=== PATIENT | female | born 1965 | race Caucasian/White ===

== ENCOUNTER 2019-03-29 13:07 | Day surgery (SDC) | payer OTHER, SELFPAY ==
--- NOTE | 2019-03-28 13:32 | HP.PCM_ITS ---
History and Physical Date of Admission: 03/29/19 Surgical History and Physical July Gypsy, a 53 year old female 2 0 1 0 2, presents for Bartholins Gland Marsupialization on March 29, 2019 at 3:00. 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 LMP 08/2014. States she was told she had this ~ 20 yrs ago, but nothing was done. She was not bothered by this until ~ 5 yrs ago when it had to be lanced, drained, packed and was given an ABX. Reports that she drains the cyst about once weekly and wears a pad daily due to drainage. Adds when it fills up she gets a backache and always feels awful. Called late last week and claims it is about 1-2 inches in diameter at present. MEDICATIONS HISTORY: Current medications prescribed by our practice are: 1. Metrogel Vaginal 0.75 %, One applicatorful 2 x daily for 5 days Patient is also takin. gabapentin 100 mg capsule, One pill by mouth twice a day 2. rosuvastatin 20 mg tablet, One tablet by mouth daily 3. Vitamin D2 50,000 unit capsule, One pill by mouth once a week ALLERGIES: No Known Allergies Infections - Chicken Pox Illnesses - Depression Accidents - None Hospitalizations - Childbirth and see surgery Review of Systems: GENERAL - Denies fever, or chills SKIN - Denies skin changes EYES - Denies visual changes EARS - Denies difficulty hearing NOSE - Denies nasal congestion or bleeding MOUTH - Denies sore throat or difficulty swallowing NECK - Denies pain or swelling RESPIRATORY - Denies shortness of breath or wheezing CARDIOVASCULAR - Denies palpitations or chest pain GASTROINTESTINAL - Denies nausea, vomiting, diarrhea, constipation GENITOURINARY - Denies dysuria, frequency of urination, incontinence of urine MUSCULOSKELETAL - Denies joint or muscle pain NEUROLOGICAL - Denies localized numbness or weakness PSYCHIATRIC - Denies depression or anxiety ENDOCRINE - Denies heat or cold intolerance, weight loss or gain HEMATO-IMMUNOLOGIC - Denies excesive bleeding with cuts SOCIAL HISTORY: Alcohol Use - None Smoking - 1 PPD (ATQ) Diet - no special diet Lifestyle - moderate stress lifestyle and Exercise - active Seat Belt Use - always Employer - Home Illicit Drug Use - None Sexual Activity - Residence - Lives w/ Spouse-Sig Other Name - August Betancur Spouse-Sig Other Occupation - [employer] Spouse-Sig Other Phone No - [phone] Children Name(s) - 2 living Control - Post Menopausal FAMILY HISTORY: non-contributory MENSTRUAL HISTORY: LMP Known?- Post Menopausal, Age Onset Menarche - 12 PAST PREGNANCIES: Total Pregnancies - 3; Full Term Pregnancies - 2; Premature - 0; Abortions, Induced - 1; Abortions, Spontaneous - 0; Ectopics - 0; Multiple Births - 0; Living Children - 2 SURGICAL HISTORY: 1. Tubal 1990 PHYSICAL EXAM BP- 116/66 Sitting, Right arm, regular cuff Weight- 153 lbs Height- 62.25 inch BMI:27.82 CONSTITUTIONAL - NAD, well nourished, and well developed SKIN - No rash, lesions, or ulcers HEENT - Normocephalic, PERRLA, EOMI NECK - No nodes, no nuchal rigidity and thyroid normal size and texture LYMPH NODES - Palpation of lymph nodes in neck and groins within normal limits LUNGS - CTA x2 without wheezes, crackles or rales CARDIAC - Regular rate and rhythm without rubs, murmurs, or gallops BREAST - No dominant masses, no tenderness, no axillary adenopathy, no nipple discharge, no skin changes ABDOMEN - Without hepatosplenomegaly, distention, masses, rebound, or guarding; normal bowel sounds; no hernias EXTREMITIES - No edema or calf tenderness NEUROLOGICAL - Cranial nerves II-XII grossly intact PSYCHIATRIC - A and O to time, place, person, mood and affect External Genitial Vagina - non-tender without lesions; on phone claims bartholins cyst on right about 1-2 icinches in diameter Urethra/Urethral Meatus - non-tender Bladder - non-tender Vagina - vaginal medeiros are pink and moist without loss of rugae and no evidence of atropy Cervix - without cervical motion tenderness and has normal size and features wi thout evident lesions Uterus - 5-6 cm in size, mobile and nontender Adnexa - clear without massess or tendernes ASSESSMENT/PLAN: Recurrent Bartholinitis. Discussed marsupialization since >1 inch diameter. Discussed RBAs including possibility of not being able to perform procedure if it is too small and not helping with recurrence. All questions answered.
[2019-03-29 13:35] VITALS: BP 117/69; PULSE 74; RESP 14; TEMP 37.1; O2SAT 99; BMI 27.8
[2019-03-29 13:41] LABS: Hemoglobin 14.1 g/dL (12.0-15.0); Mean Corp Hgb Conc 35.3 g/dL (32-36); Mean Corpuscular Hgb 32.6 pg (27.0-32.0); Mean Corpuscular Volume 92.6 fL (81-99); Mean Platelet Vol. 9.4 fl (6.2-12.0); Platelet Count 216 K/mm3 (150-450); RBC Distribution Width CV 11.7 % (11.6-14.6); RBC Distribution Width SD 39.4 fl (35.1-43.9); Red Blood Count 4.32 M/mm3 (4.2-5.4); White Blood Count 5.7 K/mm3 (4.4-11.0)
[2019-03-29] MEDS: Lactated Ringers 1,000 ML 100 ML IV (13:57)
--- NOTE | 2019-03-29 15:06 | PCM.OPRPT ---
Report of Operation Date of Procedure: 03/29/19 Pre-Operative Diagnosis: Recurrent Right Bartholinitis Post-Operative Diagnosis: Recurrent Right Bartholinitis Surgery/Procedure Performed:: Marsupialization of Right Bartholin Cyst Description of Surgical Findings:: 2 to 3 cm right Bartholin cyst with puss-like fluid present upon opening Type of Anesthesia:: General - LMA Anesthesiologist: Jami Knight Specimen's removed: None Drains: None Estimated Blood Loss (mL): Minimal Fluids Replaced: Crystalloid Description of Procedure: Surgeon: Braydon Reyna MD, FACOG Indications: This is a 53 year old patient who has been having problems with recurrent right Bartholinitis. The patient has been counseled regarding the risk and indications of this procedure including the possibility of bleeding, infection, and injury to surrounding structures such as bowel bladder. All questions were answered and we consider the patient well-informed. Procedure: The patient was taken to the operating room where after induction of general anesthesia, she was placed in the dorsolithotomy position and prepped and draped in the usual sterile fashion. The Bartholin's cyst on the right was identified and opened for approximately 1 cm with a knife and after grasping the capsule edges with an allis were stitched in place with 2-0 chromic suture interrupted leaving the cyst open. Purulent fluid was noted in the cyst and the cyst space was copiously irrigated with saline solution. Patient tolerated procedure well was taken to recovery room in satisfactory condition sponge instrument and needle counts were all reportedly correct. Estimated blood loss for the case was minimal. Specimens to pathology was none Complications: None Grafts/Implants Used: None - Complications None - Admit VTE Documentation VTE Present on Admission: Yes VTE Mechan Device Prophylaxis: SCD's
--- NOTE | 2019-03-29 15:12 | PCM.DC.D&C ---
Discharge Diet: No Restrictions Discharge Activity: Return to Normal Activity, May Shower, May Take a Tub Bath May resume sexual activity in: 3 weeks Call your doctor if you observe: Fever of 101 or Higher, Inability to urinate, Inability to have a bowel movement, Using more than one pad per hour Allergies/Adverse Reactions: Allergies No Known Allergies Allergy (Verified 03/26/19 11:53) Medications to take at Discharge Ascorbic Acid [Vitamin C] 500 mg PO DAILY 03/26/19 Ergocalciferol [Vitamin D] 50,000 unit PO Q7D 03/26/19 Gabapentin [Neurontin] 100 mg PO BID 03/26/19 Rosuvastatin Calcium [Crestor] 20 mg PO QHS 03/26/19 Vitamin E 400 units PO DAILY 03/26/19 Orders to be completed after discharge: Type & Screen Time Frame: 03/29/19, Facility: [facility], Location: Laboratory Primary Care Physician: Terrell Del Toro MD [Primary Care Provider] - Test Results: Test results from this visit will be discussed in further detail at your follow-up appointment, if applicable. Please Follow Up With: Braydon Reyna MD When: 3 to 4 weeks
[2019-03-29 15:51] VITALS: BP 117/69; BP 120/62; PULSE 70; RESP 16; TEMP 36.3; O2SAT 93
[2019-03-29 16:00] VITALS: BP 108/78; BP 117/69; PULSE 73; RESP 16; O2SAT 94
[2019-03-29 16:15] VITALS: BP 117/69; BP 98/44; PULSE 70; RESP 16; O2SAT 94
[2019-03-29 16:30] VITALS: BP 101/68; BP 117/69; PULSE 70; RESP 16; TEMP 36.2; O2SAT 94
[2019-03-29] MEDS: HYDROcodone Bitartrate/Apap 5/325 Tablet PO (16:54)
[2019-03-29 17:13] VITALS: BP 117/69
== END 2019-03-29 17:22 | disposition home or self-care (01) ==
LOC: SDC 13:11 → AC 13:12
PROVIDERS: Family Provider Family Medicine; PCP Family Medicine; Referring Provider Obstetrics & Gynecology; Visit Provider Obstetrics & Gynecology
PROC: (CPT 56740; principal; 2019-03-29 14:25)
DX: N75.0 Cyst of Bartholin's gland (principal); F17.200 Nicotine dependence, unspecified, uncomplicated
CPT/HCPCS: 56440; 36415; 85027; 86850; 86900; 86901; J7120; J2405

== ENCOUNTER → 2022-05-23 | Outpatient (CLI) | payer BC, SELFPAY ==
[2022-05-30 17:46] LABS: HPV APTIMA, High Risk Negative (Negative)
== END | disposition home or self-care (01) ==
LOC: LABSPEC 14:31
PROVIDERS: PCP Family Medicine; Visit Provider Obstetrics & Gynecology
DX: Z12.4 Encounter for screening for malignant neoplasm of cervix (principal)
CPT/HCPCS: 87624; 88175; G0145